=== PATIENT | female | born 1965 | race African-American/Black ===

== ENCOUNTER 2017-03-26 15:09 | Emergency (ER) | payer BC, MEDICAID ==
[~2017-03-26] VITALS: Ht 160 cm; Wt 90.7 kg
[2017-03-26 15:33] VITALS: BP 125/87
[2017-03-26] MEDS ORDERED: Bacitracin Oint UD TOPIC ONE ×2 (15:34→16:00)
[2017-03-26] MEDS ORDERED: Lidocaine 1% MPF 10mg/ml 5ml IM ONE (15:45)
--- NOTE | 2017-03-26 15:45 | Emergency Room Report ---
History of Present Illness General Chief Complaint: Skin Rash/Abscess Source: Patient Present Illness HPI 51 YO Female presents to the ED c/o pain, swelling, and erythema of left buttock x 3 days. no fevers or chills. Denies trauma or fall. Patient denies abdominal pain, nausea, vomiting, fatigue, lesions elsewhere, itching. Patient denies recent travel. Patient's states she is up-to-date with vaccinations including tetanus. Denies CP, Palpitations, LOC, AMS, dizziness, Changes in Vision, Sensation, paresthesias, or a sudden severe headache. Allergies: Coded Allergies: GRASS POLLEN (Verified Allergy, Severe, Itching, 03/26/17) ORANGE JUICE (Verified Allergy, Severe, Rash, 03/26/17) Patient History Past Medical History: see triage record Past Surgical History: none Last Menstrual Period: none Now: No Immunizations: UTD Reviewed Nursing Documentation: PMH: Agreed, PSxH: Agreed Nursing Documentation-PMH Past Medical History: No History, Except For Hx Cardiac Problems: Yes - heart murmur Review of Systems All Other Systems: negative except mentioned in HPI Physical Exam Vital Signs Date Time Temp Pulse Resp B/P Pulse Ox O2 Delivery O2 Flow Rate FiO2 03/26/17 15:13 98.4 84 18 121/85 98 Room Air Sp02 EP Interpretation: reviewed, normal General Appearance: no apparent distress, alert, GCS 15, non-toxic Head: normocephalic, atraumatic Eyes: bilateral eye PERRL, bilateral eye normal inspection ENT: hearing grossly normal, normal pharynx, no angioedema, normal voice Neck: full range of motion, supple/symm/no masses Respiratory: chest non-tender, lungs clear, normal breath sounds, speaking full sentences Cardiovascular #1: regular rate, rhythm, no edema Musculoskeletal: back normal, gait/station normal, normal range of motion, non- tender Neurologic: alert, oriented x3, responsive, motor strength/tone normal, sensory intact, speech normal Psychiatric: judgement/insight normal, memory normal, mood/affect normal Skin: no rash, warm/dry, well hydrated, other - 1.5 cm abscess to the left buttock with erythema, and induration, no fluctuance palpated. Lymphatic: no adenopathy Procedures Incision and Drainage Incision and Drainage : Consent: Verbal Site: left buttock Blade Size: 11 I & D Procedure: betadine prep Wound Location: other - left buttock Wound's Depth, Shape: into muscle Wound Length (cm): 1 Wound Explored: contaminated - thick purulent d/c noted Irrigated w/ Saline (ccs): 200 Anesthesia: 1% Lidocaine Volume Anesthetic (ccs): 1 Splint Applied?: No Sling Applied?: No Patient Tolerated: Well Complications: None Medical Decision Making PA Attestation Dr. Payne is my supervising Physician whom patient management has been discussed with. Diagnostic Impression: Primary Impression: Abscess ER Course Pt. presents to the ED c/o pain, swelling, and erythema of left buttock x 3 days. no fevers or chills. Ddx considered but are not limited to cellulitis, abscess, cystic acne, necrotizing fasciitis, insect bite. Vital signs: are WNL, pt. is afebrile H&PE are most consistent with abscess of the left buttock ORDERS: none required at this time, the diagnosis is clinical ED INTERVENTIONS: -I & D. DISCHARGE: At this time pt. is stable for d/c to home. Will provide printed patient care instructions, and any necessary prescriptions. Care plan and follow up instructions have been discussed with the patient prior to discharge. Last Vital Signs Date Time Temp Pulse Resp B/P Pulse Ox O2 Delivery O2 Flow Rate FiO2 03/26/17 15:33 98.3 87 17 125/87 98 Room Air Disposition: HOME, SELF-CARE Condition: Stable Scripts Doxycycline Hyclate* (VIBRAMYCIN*) 100 Mg Capsule 100 MG ORAL EVERY 12 HOURS for 7 Days, #14 CAP 0 Refills Prov: Marcia Lewis 03/26/17 Bacitracin/Polymyxin B Sulfate (BACITRACIN-POLYMYXIN OINTMENT) 28.35 Gm Oint...g. 1 APPLIC TP BID, #28.3 GM Prov: Marcia Lewis 03/26/17 Patient Instructions: Abscess Additional Instructions: Take medications as directed. Follow up with PCP in 3-5 days Return sooner to ED if new symptoms occur, or current symptoms become worse. - Please note that this Emergency Department Report was dictated using [employer] fund[employer] technology software, occasionally this can lead to erroneous entry secondary to interpretation by the dictation equipment. Marcia Lewis March 26, 2017 15:45
[2017-03-26] MEDS ORDERED: BACITRACIN-P28.35 GM TP (15:47)
[2017-03-26] MEDS ORDERED: VIBRAMYCIN100 MG ORAL (15:47)
[2017-03-26 16:07] VITALS: BP 125/87
== END 2017-03-26 16:08 | disposition home or self-care (01) ==
LOC: EMR 16:04
DX: L02.31 Cutaneous abscess of buttock (principal); R01.1 Cardiac murmur, unspecified; Z91.018 Allergy to other foods; Z91.09 Other allergy status, other than to drugs and biological substances
CPT/HCPCS: 10060; 99284